=== PATIENT | female | born 1945 | race Caucasian/White ===

== ENCOUNTER → 2022-10-26 | Outpatient (CLI) | payer MEDICARE ==
[2022-10-26 11:31] LABS: BILIRUBIN,URINE NEGATIVE (NEGATIVE); CLARITY,URINE TURBID; COLOR,URINE YELLOW; GLUCOSE, URINE (UA) NEGATIVE (NEGATIVE); KETONES,URINE TRACE (NEGATIVE); LEUKOCYTE ESTERASE ,URINE 2+ (NEGATIVE); NITRITE,URINE POSITIVE (NEGATIVE); PH,URINE 5.5 (5-9); PROTEIN,URINE TRACE (NEGATIVE)
[2022-10-26 11:38] LABS: BACTERIA,URINE LARGE /HPF; WBC,URINE >100 /HPF
== END ==
PROVIDERS: ATTEND Pediatrics
DX: F33.3 Major depressive disorder, recurrent, severe with psychotic symptoms (principal)
CPT/HCPCS: 81000; 87077; 87088; 87186

== ENCOUNTER 2022-11-14 08:57 | Emergency (ER) | payer MEDICARE ==
--- NOTE | 2022-11-14 09:04 | ED General ---
General Stated Complaint: ALTERED LOC History of Present Illness Date Seen by Provider: Nov 14, 2022 Time Seen by Provider: 08:58 Initial Comments 77-year-old female with PMH of HTN/dementia/anxiety/severe depressive disorder with psychosis, is brought in by EMS from medical [place] with complaints of altered mental status and not eating. In the ER patient appears lethargic and tired, and will answer to her name, however she speaks and responds only when she feels like. It is difficult to assess her mental status up accurately since we are not sure about her baseline level of functioning with her dementia. Patient is definitely not a good historian and is unable to provide history. Patient is denying pain and shortness of breath and chest pain. Allergies and Home Medications Allergies Coded Allergies: No Known Drug Allergies (Unverified , 11/14/22) Patient Home Medication List Home Medication List Reviewed: Yes Review of Systems Review of Systems Constitutional: malaise EENTM: no symptoms reported Respiratory: no symptoms reported Cardiovascular: no symptoms reported Gastrointestinal: no symptoms reported Genitourinary: no symptoms reported Musculoskeletal: no symptoms reported Skin: no symptoms reported Psychiatric/Neurological: See HPI, Depressed, Other (Altered mental status and dementia) Hematologic/Lymphatic: No Symptoms Reported Immunological/Allergic: no symptoms reported Physical Exam Vital Signs Vital Signs - First Documented 11/14/22 08:57 Temp 36.3 Pulse 84 Resp 16 B/P (MAP) 116/55 (75) Pulse Ox 98 O2 Delivery Room Air Capillary Refill : Height, Weight, BMI Height: '" Weight: lbs. oz. kg; BMI Method: General Appearance: No Apparent Distress, WD/WN, Thin HEENT: PERRL/EOMI, TMs Normal, Normal ENT Inspection, Pharynx Normal Neck: Full Range of Motion, Normal Inspection Respiratory: Chest Non Tender, Lungs Clear, Normal Breath Sounds, No Accessory Muscle Use, No Respiratory Distress Cardiovascular: No Edema, No JVD Gastrointestinal: Normal Bowel Sounds, No Organomegaly, Non Tender, Soft Back: No CVA Tenderness Extremity: Normal Range of Motion Neurologic/Psychiatric: Alert, No Motor/Sensory Deficits, Depressed Affect, Other (Altered mental status but patient is responding to name, and she will speak when she feels like saying something. Sometimes she will answer questions sometimes she will keep her eyes closed not responding.) Reflexes: 4+ Bicep (R), 4+ Bicep (L), 4+ Tricep (R), 4+ Tricep (L), 4+ Knee (R), 4+ Knee (L), 4+ Ankle (R), 4+ Ankle (L) Skin: Pallor, Other (Tenting of skin and dry mucous membranes with parched cracked lips present.) Lymphatic: No Adenopathy Focused Exam Lactate Level 11/14/22 09:10: Lactic Acid Level 5.91*H Lactic Acid Level Laboratory Tests Test 11/14/22 09:10 Lactic Acid Level 5.91 MMOL/L (0.50-2.00) *H Progress/Results/Core Measures Suspected Sepsis SIRS Temperature: Pulse: Respiratory Rate: Laboratory Tests 11/14/22 09:10: White Blood Count 31.7*H Blood Pressure / Mean: 11/14/22 09:10: Lactic Acid Level 5.91*H Laboratory Tests 11/14/22 09:10: Creatinine 4.42H, INR Comment 1.7H, Platelet Count 226, Total Bilirubin 0.6 Results/Orders Lab Results Laboratory Tests Test 11/14/22 09:10 11/14/22 09:47 Range/Units White Blood Count 31.7 *H 4.3-11.0 10^3/uL Red Blood Count 5.51 H 3.80-5.11 10^6/uL Hemoglobin 16.7 H 11.5-16.0 g/dL Hematocrit 54 H 35-52 % Mean Corpuscular Volume 98 80-99 fL Mean Corpuscular Hemoglobin 30 25-34 pg Mean Corpuscular Hemoglobin Concent 31 L 32-36 g/dL Red Cell Distribution Width 16.8 H 10.0-14.5 % Platelet Count 226 130-400 10^3/uL Mean Platelet Volume 13.8 H 9.0-12.2 fL Immature Granulocyte % (Auto) 1 % Neutrophils (%) (Auto) 89 H 42-75 % Lymphocytes (%) (Auto) 6 L 12-44 % Monocytes (%) (Auto) 4 0-12 % Eosinophils (%) (Auto) 0 0-10 % Basophils (%) (Auto) 0 0-10 % Neutrophils # (Auto) 28.2 H 1.8-7.8 10^3/uL Lymphocytes # (Auto) 1.9 1.0-4.0 10^3/uL Monocytes # (Auto) 1.3 H 0.0-1.0 10^3/uL Eosinophils # (Auto) 0.0 0.0-0.3 10^3/uL Basophils # (Auto) 0.1 0.0-0.1 10^3/uL Immature Granulocyte # (Auto) 0.3 H 0.0-0.1 10^3/uL Neutrophils % (Manual) 81 % Lymphocytes % (Manual) 6 % Monocytes % (Manual) 3 % Band Neutrophils 10 % Platelet Estimate NORMAL Macrocytosis 1+ Crenated Cell SLIGHT Prothrombin Time 20.0 H 12.2-14.7 SEC INR Comment 1.7 H 0.8-1.4 Activated Partial Thromboplast Time 23 L 24-35 SEC Sodium Level 164 *H 135-145 MMOL/L Potassium Level 4.2 3.6-5.0 MMOL/L Chloride Level 127 H 98-107 MMOL/L Carbon Dioxide Level 12 L 21-32 MMOL/L Anion Gap 25 H 5-14 MMOL/L Blood Urea Nitrogen 96 H 7-18 MG/DL Creatinine 4.42 H 0.60-1.30 MG/DL Estimat Glomerular Filtration Rate 10 BUN/Creatinine Ratio 22 Glucose Level 194 H 70-105 MG/DL Lactic Acid Level 5.91 *H 0.50-2.00 MMOL/L Calcium Level 11.2 H 8.5-10.1 MG/DL Corrected Calcium 11.4 H 8.5-10.1 MG/DL Magnesium Level 2.2 1.6-2.4 MG/DL Total Bilirubin 0.6 0.1-1.0 MG/DL Aspartate Amino Transf (AST/SGOT) 22 5-34 U/L Alanine Aminotransferase (ALT/SGPT) 12 0-55 U/L Alkaline Phosphatase 106 40-136 U/L Troponin I < 0.30 <0.30 NG/ML Total Protein 7.1 6.4-8.2 GM/DL Albumin 3.7 3.2-4.5 GM/DL Urine Color YELLOW Urine Clarity CLOUDY Urine pH 5.5 5-9 Urine Specific [place] 1.020 1.016-1.022 Urine Protein TRACE H NEGATIVE Urine Glucose (UA) NEGATIVE NEGATIVE Urine Ketones NEGATIVE NEGATIVE Urine Nitrite NEGATIVE NEGATIVE Urine Bilirubin NEGATIVE NEGATIVE Urine Urobilinogen 0.2 < = 1.0 MG/DL Urine Leukocyte Esterase TRACE H NEGATIVE Urine RBC (Auto) 1+ H NEGATIVE Urine RBC 2-5 H /HPF Urine WBC 5-10 H /HPF Urine Squamous Epithelial Cells >50 H /HPF Urine Crystals NONE /LPF Urine Bacteria LARGE H /HPF Urine Casts NONE /LPF Urine Mucus SMALL H /LPF Urine Culture Indicated YES Urine Opiates Screen NEGATIVE NEGATIVE Urine Oxycodone Screen NEGATIVE NEGATIVE Urine Methadone Screen NEGATIVE NEGATIVE Urine Propoxyphene Screen NEGATIVE NEGATIVE Urine Barbiturates Screen NEGATIVE NEGATIVE Ur Tricyclic Antidepressants Screen POSITIVE H NEGATIVE Urine Phencyclidine Screen NEGATIVE NEGATIVE Urine Amphetamines Screen NEGATIVE NEGATIVE Urine Methamphetamines Screen NEGATIVE NEGATIVE Urine Benzodiazepines Screen NEGATIVE NEGATIVE Urine Cocaine Screen NEGATIVE NEGATIVE Urine Cannabinoids Screen NEGATIVE NEGATIVE My Orders Orders - JOESPH GUZMÁN MD Catheter(Urinary) Insert & Ass (11/14/22 09:04) Cbc With Automated Diff (11/14/22 09:05) Comprehensive Metabolic Panel (11/14/22 09:05) Drug Screen Stat (Urine) (11/14/22 09:05) Magnesium (11/14/22 09:05) Protime With Inr (11/14/22 09:05) Partial Thromboplastin Time (11/14/22 09:05) Ua Culture If Indicated (11/14/22 09:05) Troponin I Fs (11/14/22 09:05) Chest 1 View Ap/Pa Only (11/14/22 09:05) Ct Head Wo-R/O Stroke (11/14/22 09:06) Manual Differential (11/14/22 09:10) Continuous Ekg Monitoring (11/14/22 09:39) Ekg Tracing (11/14/22 09:39) Blood Culture (11/14/22 09:40) Lactic Acid Analyzer (11/14/22 09:40) Ed Iv/Invasive Line Start (11/14/22 10:02) Ed Iv/Invasive Line Start (11/14/22 10:02) Cefepime Injection (Maxipime Injection) (11/14/22 10:15) 1/2 Ns Iv Solution (0.45% Sodium Chlorid (11/14/22 10:03) Ondansetron Injection (Zofran Injectio (11/14/22 10:15) Ondansetron Injection (Zofran Injectio (11/14/22 10:07) Urine Culture (11/14/22 09:47) Medications Given in ED Current Medications Medications Dose Ordered Sig/Mya Route Start Time Stop Time Status Last Admin Dose Admin Cefepime HCl 1000 mg/Sodium Chloride 50 ml @ 100 mls/hr ONCE ONCE IV 11/14/22 10:15 11/14/22 10:44 DC 11/14/22 10:10 100 MLS/HR Ondansetron HCl 4 mg ONCE ONCE IVP 11/14/22 10:15 11/14/22 10:16 DC 11/14/22 10:08 4 MG Vital Signs/I&O 11/14/22 08:57 Temp 36.3 Pulse 84 Resp 16 B/P (MAP) 116/55 (75) Pulse Ox 98 O2 Delivery Room Air Capillary Refill : Progress Note : Progress Note 1. AMS: DUE TO UROSEPSIS: ACUTE CYSTITIS WITH HEMATURIA WITH RESULTING RIOS: - CT HEAD: no acute finding - CXR: no acute finding - CBC: WBC is elevated at 31.7 - EKG non-ischemis - Troponin undetectable - UA is positive for leukocyte esterase, RBC, WBC, bacteria -Lactic acid is elevated at 5.91 -Creatinine is elevated at 4.42, patient does not have a history of kidney disease so this is likely due to dehydration. - 0.45% NS bolus STAT in ER - Cefepime 1gm iv STAT in ER -Called Dr. Chin's office and he will be excepting the patient for admission to [facility] 2. HYPERNATREMIA: - s. Na: 164 -May be due to her psych meds and dehydration Diagnostic Imaging Diagonstic Imaging: Xray, CT Plain Films/CT/US/NM/MRI: chest, head Comments [facility]. [place], [place] NAME: GERA CALLEJAS [place] [facility] REC#: [id number] PT STATUS: REG ER : 1945 PHYSICIAN: JOESPH GUZMÁN MD ADMIT DATE: 11/14/22/ER FS Signed Date of Exam:11/14/22 CHEST 1 VIEW AP/PA ONLY INDICATION: Altered mental status. FINDINGS: There is cardiomegaly. There is a hiatal hernia. There is no pleural effusion, pneumothorax or pneumonia. The mediastinum is unremarkable. IMPRESSION: Cardiomegaly. Moderate hiatal hernia. Dictated by: Dictated on workstation # [id number] Dict: 11/14/22936 Trans: 11/14/22939 [facility] [id number] Interpreted by: SOO MANRIQUE MD Electronically signed by: SOO MANRIQUE MD 11/14/22939 [facility] [place] [place] NAME: GERA CALLEJAS [facility] REC#: [id number] PT STATUS: REG ER : 1945 PHYSICIAN: JOESPH GUZMÁN MD ADMIT DATE: 11/14/22/ER FS Signed Date of Exam:11/14/22 CT HEAD WO-R/O STROKE PROCEDURE: CT head wo r/o stroke. TECHNIQUE: Multiple contiguous axial images were obtained through the brain without the use of intravenous contrast. Auto Exposure Controls were utilized during the CT exam to meet ALARA standards for radiation dose reduction. INDICATION: Dementia, altered mental status COMPARISON: None available. FINDINGS: Patient motion artifact degrades image quality. No acute cranial hemorrhage. The almendarez-white matter differentiation is preserved. Scattered hypoattenuation within the periventricular and subcortical white matter. Mild generalized prominence of the ventricles and cortical sulci. Scattered calcifications of the intracranial vasculature. No intracranial mass or fluid collection. No midline shift or mass effect. The paranasal sinuses and mastoids are clear. The globes and orbits are normal. The skull is intact. IMPRESSION: No acute intracranial hemorrhage. No large vascular territory benitez-white loss. No intracranial mass, midline shift, or hydrocephalus. Mild chronic small vessel ischemic disease. Mild global volume loss. Dictated by: Dictated on workstation # [id number] Dict: 11/14/22945 Trans: 11/14/22948 [facility] [id number] Interpreted by: TOAN BANKS DO Electronically signed by: TOAN BANKS DO 11/14/2249 Departure Communication (Admissions) Time/Spoke to Admitting Phy: 10:30 Dr. Chin's accepting physician. Will admit to [facility] Impression Primary Impression: Sepsis Qualified Codes: A41.9 - Sepsis, unspecified organism Additional Impressions: Severe dehydration Hypernatremia RIOS (acute kidney injury) Disposition: 02 XFER SHT-TRM HOSP Condition: Stable Admissions Decision to Admit Reason: Admit from ER (General) Decision to Admit/Date: Nov 14, 2022 Time/Decision to Admit Time: 09:50 Transfer Transfer Reason: Exceeds level of care Time Spoke to Accepting Phy: 10:30 Transfer Progress Notes We will admit to the [facility] Transfer Facility: [facility] Method of Transfer: EMS Departure-Patient Inst. Referrals: SHAKILA CHIN MD (PCP/Family) Primary Care Physician JOESPH GUZMÁN MD Nov 14, 2022 09:04
[2022-11-14 09:24] LABS: BASOPHILS # (AUTO) 0.1 10^3/uL (0.0-0.1); BASOPHILS % (AUTO) 0 % (0-10); EOSINOPHILS % (AUTO) 0 % (0-10); HEMATOCRIT 54 % (35-52); HEMOGLOBIN 16.7 g/dL (11.5-16.0); LYMPHOCYTES # (AUTO) 1.9 10^3/uL (1.0-4.0); LYMPHOCYTES % (AUTO) 6 % (12-44); MEAN CORPUSCULAR HEMOGLOBIN 30 pg (25-34); MEAN CORPUSCULAR HGB CONC 31 g/dL (32-36); MEAN CORPUSCULAR VOLUME 98 fL (80-99); MEAN PLATELET VOLUME 13.8 fL (9.0-12.2); MONOCYTES # (AUTO) 1.3 10^3/uL (0.0-1.0); MONOCYTES % (AUTO) 4 % (0-12); NEUTROPHILS # (AUTO) 28.2 10^3/uL (1.8-7.8); NEUTROPHILS % (AUTO) 89 % (42-75); PLATELET COUNT 226 10^3/uL (130-400)
[2022-11-14 09:35] LABS: WHITE BLOOD COUNT 31.7 10^3/uL (4.3-11.0)
--- NOTE | 2022-11-14 09:40 | Diagnostic Imaging Report ---
INDICATION: Altered mental status. FINDINGS: There is cardiomegaly. There is a hiatal hernia. There is no pleural effusion, pneumothorax or pneumonia. The mediastinum is unremarkable. IMPRESSION: Cardiomegaly. Moderate hiatal hernia. Dictated by: Dictated on workstation # [id number]
[2022-11-14 09:49] LABS: POTASSIUM 4.2 MMOL/L (3.6-5.0)
--- NOTE | 2022-11-14 09:50 | Diagnostic Imaging Report ---
PROCEDURE: CT head wo r/o stroke. TECHNIQUE: Multiple contiguous axial images were obtained through the brain without the use of intravenous contrast. Auto Exposure Controls were utilized during the CT exam to meet ALARA standards for radiation dose reduction. INDICATION: Dementia, altered mental status COMPARISON: None available. FINDINGS: Patient motion artifact degrades image quality. No acute cranial hemorrhage. The almendarez-white matter differentiation is preserved. Scattered hypoattenuation within the periventricular and subcortical white matter. Mild generalized prominence of the ventricles and cortical sulci. Scattered calcifications of the intracranial vasculature. No intracranial mass or fluid collection. No midline shift or mass effect. The paranasal sinuses and mastoids are clear. The globes and orbits are normal. The skull is intact. IMPRESSION: No acute intracranial hemorrhage. No large vascular territory benitez-white loss. No intracranial mass, midline shift, or hydrocephalus. Mild chronic small vessel ischemic disease. Mild global volume loss. Dictated by: Dictated on workstation # [id number]
[2022-11-14 09:51] LABS: BILIRUBIN,URINE NEGATIVE (NEGATIVE); CLARITY,URINE CLOUDY; COLOR,URINE YELLOW; GLUCOSE, URINE (UA) NEGATIVE (NEGATIVE); KETONES,URINE NEGATIVE (NEGATIVE); LEUKOCYTE ESTERASE ,URINE TRACE (NEGATIVE); NITRITE,URINE NEGATIVE (NEGATIVE); PH,URINE 5.5 (5-9); PROTEIN,URINE TRACE (NEGATIVE)
[2022-11-14 09:51] LABS: CARBON DIOXIDE 12 MMOL/L (21-32); CHLORIDE 127 MMOL/L (98-107); SODIUM 164 MMOL/L (135-145)
[2022-11-14 09:52] LABS: ALANINE AMINOTRANSFERASE 12 U/L (0-55); ALBUMIN 3.7 GM/DL (3.2-4.5); ALKALINE PHOSPHATASE 106 U/L (40-136); BILIRUBIN,TOTAL 0.6 MG/DL (0.1-1.0); BUN/CREATININE RATIO 22; CALCIUM 11.2 MG/DL (8.5-10.1); CREATININE SERUM 4.42 MG/DL (0.60-1.30); GFR ESTIMATED 10; GLUCOSE 194 MG/DL (70-105); MAGNESIUM 2.2 MG/DL (1.6-2.4); TOTAL PROTEIN 7.1 GM/DL (6.4-8.2)
[2022-11-14 09:53] LABS: INR 1.7 (0.8-1.4)
[2022-11-14] MEDS ORDERED: 1/2 NS IV SOLUTION 1,000 ML IV STA (10:03)
[2022-11-14] MEDS ORDERED: ONDANSETRON 4 MG/2 ML (SDV) Z0FRAN ONE (10:07)
[2022-11-14 10:10] LABS: AMPHETAMINE SCREEN, URINE NEGATIVE (NEGATIVE); BARBITURATE SCREEN URINE NEGATIVE (NEGATIVE); BENZODIAZEPINES SCREEN URINE NEGATIVE (NEGATIVE); CANNABINOID SCREEN, URINE NEGATIVE (NEGATIVE); COCAINE SCREEN URINE NEGATIVE (NEGATIVE); METHADONE STAT NEGATIVE (NEGATIVE); OPIATE SCREEN URINE NEGATIVE (NEGATIVE); OXYCODONE STAT NEGATIVE (NEGATIVE); PROPOXYPHENE STAT NEGATIVE (NEGATIVE); TRICYCLIC ANTIDEPRESSANTS SCRE POSITIVE (NEGATIVE)
[2022-11-14] MEDS ORDERED: NS IV 1000 ML 1,000 ML IV SCH (10:15)
[2022-11-14] MEDS ORDERED: ONDANSETRON 4 MG/2 ML (SDV) Z0FRAN IVP ONE (10:15)
[2022-11-14] MEDS ORDERED: CEFEPIME INJECTION 1,000 MG in NS (IVPB) 50 ML IV ONE (10:15)
[2022-11-14 10:16] LABS: BACTERIA,URINE LARGE /HPF; SQUAMOUS EPITHELIAL CELL,UR >50 /HPF
[2022-11-14 10:30] LABS: BAND NEUTROPHILS 10 %; CRENATED RBC SLIGHT; LYMPHOCYTES % (MANUAL) 6 %; MONOCYTES % (MANUAL) 3 %; NEUTROPHILS % (MANUAL) 81 %; PLATELET ESTIMATE NORMAL
[2022-11-14 11:45] VITALS: BP 117/54
== END 2022-11-14 11:59 | disposition short-term general hospital (02) ==
LOC: EDUNIT# 08:57 → ER FS 08:58
DX: A41.9 Sepsis, unspecified organism (principal); E86.0 Dehydration; E87.0 Hyperosmolality and hypernatremia; N17.9 Acute kidney failure, unspecified; R74.02 Elevation of levels of lactic acid dehydrogenase [LDH]
CPT/HCPCS: 36415; 51702; 70450; 71045; 80053; 80306; 81000; 83605; 83735; 84484; 85007; 85027; 85610; 85730; 87040; 87077; 87088; 93005; 93041